=== PATIENT | male | born 1990 | race Caucasian/White ===

== ENCOUNTER 2016-11-02 02:59 | Emergency (ER) | payer OTHER ==
[2016-11-02 03:09] VITALS: RESP 18; TEMP 98.5
[2016-11-02] MEDS ORDERED: AUGMENTIN(FRIDGE) 400 MG/5 ML PO ONE (03:39)
[2016-11-02] MEDS ORDERED: AMOXIL/CLAVULANATE 400/5 ML PDR ONE (03:41)
[2016-11-02 03:49] VITALS: BP 135/77; PULSE 79; O2SAT 96
== END 2016-11-02 03:55 | disposition home or self-care (01) | DRG 153 ==
LOC: ED 02:59
DX: J02.9 Acute pharyngitis, unspecified (principal)
CPT/HCPCS: 87430; 99283